=== PATIENT | female | born 1985 | race Caucasian/White ===

== ENCOUNTER 2021-08-23 00:39 | Emergency (ER) | payer SELFPAY ==
[~2021-08-23] VITALS: Ht 165.1 cm; Wt 80.0 kg
[2021-08-23] MEDS ORDERED: IV NORMAL SALINE 1000ML BAG 1,000 ML IV SCH (01:45)
[2021-08-23 02:04] LABS: BASO # 0.1 x10^3/uL (0.0-0.2); BASO % 1 % (0-3); EOS # 0.2 x10^3/uL (0.0-0.7); EOS % 2 % (0-3); HEMATOCRIT 38.6 % (36.0-47.0); HEMOGLOBIN 13.5 g/dL (12.0-15.5); LYMPH # 2.7 x10^3/uL (1.0-4.8); LYMPH % 29 % (24-48); MEAN CORPUSCULAR HEMOGLOBIN 33 pg (25-35); MEAN CORPUSCULAR HGB CONC 35 g/dL (31-37); MEAN CORPUSCULAR VOLUME 93 fL (79-100); MONO # 0.8 x10^3/uL (0.0-1.1); MONO % 9 % (0-9); NEUT # 5.6 x10^3/uL (1.8-7.7); NEUT % 60 % (31-73); PLATELET COUNT 226 x10^3/uL (140-400); RED BLOOD COUNT 4.14 x10^6/uL (3.50-5.40); RED CELL DISTRIBUTION WIDTH 12.9 % (11.5-14.5); WHITE BLOOD COUNT 9.4 x10^3/uL (4.0-11.0)
--- NOTE | 2021-08-23 02:10 | PHYS DOC ---
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 Last bowel movement was 4 days ago. States she has not seen her surgeon regarding her symptoms. States she has bowel movements through her rectum and her vagina for > 10 years. States the fistula reopened a few months after surgery-she was warned by her surgeons that a failed repair was possible. States "it didn't heal right." No relief with an entire tube with Preparation H. States "I don't think I have a UTI, it doesn't burn." Review of Systems: Review of Systems: Constitutional: Denies fever or chills. [] Eyes: Denies change in visual acuity. [] HENT: Denies nasal congestion or sore throat. [] Respiratory: Denies cough or shortness of breath. [] Cardiovascular: Denies chest pain or edema. [] GI: Denies abdominal pain, nausea, vomiting, diarrhea, melena or hematochezia : Denies dysuria or vaginal bleeding Musculoskeletal: Denies back pain or joint pain. [] Integument: Denies rash or diaphoresis Neurologic: Denies headache, focal weakness or sensory changes. [] Endocrine: Denies polyuria or polydipsia. [] Lymphatic: Denies swollen glands. [] Psychiatric: Denies depression or anxiety. [] Heart Score: C/O Chest Pain: No Risk Factors: Risk Factors: DM, Current or recent (<one month) smoker, HTN, HLP, family history of CAD, obesity. Risk Scores: Score 0 - 3: 2.5% MACE over next 6 weeks - Discharge Home Score 4 - 6: 20.3% MACE over next 6 weeks - Admit for Clinical Observation Score 7 - 10: 72.7% MACE over next 6 weeks - Early Invasive Strategies Current Medications: Current Medications Medications (Trade) Dose Ordered Sig/Ashish Start Time Stop Time Status Last Admin Dose Admin Sodium Chloride 1,000 ml @ 1,000 mls/hr Q1H 08/23/21 01:45 08/23/21 02:44 UNV Physical Exam: PE: Constitutional: Well developed, well nourished, no acute distress, non-toxic appearance. HENT: Normocephalic, atraumatic, Eyes: EOMI, conjunctiva normal, no discharge. Neck: Normal range of motion, supple, Cardiovascular: S1/2 present, regular rhythm Lungs & Thorax: Speaking in full sentences, bilateral equal chest rise, no tachypnea or increased work of breathing Abdomen: soft, no tenderness, Skin: Warm, dry, no erythema, no rash. [] Back: No tenderness, no CVA tenderness. [] Extremities: No tenderness, no cyanosis, Neurologic: Alert and oriented X 3, normal motor function, normal sensory function, no focal deficits noted. [] Psychologic: Affect normal, judgement normal, mood normal. [] : Chaperoned by RN, 1 cm, nonthrombosed external hemorrhoid at 6 o'clock position, cannot appreciate any anal fissures or tears, perineum intact with no external visible connection between rectum and vagina, no evidence of external melena or hematemesis, no rash Current Patient Data: Labs: Laboratory Tests Test 08/23/21 01:55 White Blood Count 9.4 x10^3/uL (4.0-11.0) Red Blood Count 4.14 x10^6/uL (3.50-5.40) Hemoglobin 13.5 g/dL (12.0-15.5) Hematocrit 38.6 % (36.0-47.0) Mean Corpuscular Volume 93 fL (79-100) Mean Corpuscular Hemoglobin 33 pg (25-35) Mean Corpuscular Hemoglobin Concent 35 g/dL (31-37) Red Cell Distribution Width 12.9 % (11.5-14.5) Platelet Count 226 x10^3/uL (140-400) Neutrophils (%) (Auto) 60 % (31-73) Lymphocytes (%) (Auto) 29 % (24-48) Monocytes (%) (Auto) 9 % (0-9) Eosinophils (%) (Auto) 2 % (0-3) Basophils (%) (Auto) 1 % (0-3) Neutrophils # (Auto) 5.6 x10^3/uL (1.8-7.7) Lymphocytes # (Auto) 2.7 x10^3/uL (1.0-4.8) Monocytes # (Auto) 0.8 x10^3/uL (0.0-1.1) Eosinophils # (Auto) 0.2 x10^3/uL (0.0-0.7) Basophils # (Auto) 0.1 x10^3/uL (0.0-0.2) Laboratory Tests 08/23/21 01:55 EKG: EKG: [] Radiology/Procedures: Radiology/Procedures: IMAGING REPORT Signed PATIENT: GIL TREVINO ACCOUNT: [id number] : 1985 LOCATION: ER AGE: 35 SEX: F EXAM STATUS: REG ER ORD. PHYSICIAN: AMNA DODD DO REASON: feces in vagina, h/o colorectal vesicula;OMNI 240,30ML;OMNI 30,75ML PROCEDURE: CT ABD PELV W/ORAL&IV CONTRAST EXAMINATION: CT ABDOMEN+PELVIS W CLINICAL HISTORY: Feces in vagina, h/o colorectal vesicula TECHNIQUE: CT of the abdomen and pelvis was performed using standard technique, scanning from just above the dome of the diaphragm to the symphysis pubis following administration of intravenous contrast. CT Dose Reduction Employed: One or more of the following individualized dose reduction techniques were utilized for this examination: 1. Automated exposure control 2. Adjustment of the mA and/or kV according to patient size 3. Use of iterative reconstruction technique. COMPARISON: None FINDINGS: Minimal dependent bibasilar subsegmental atelectasis. Liver, gallbladder, pancreas, spleen, adrenal glands, and kidneys unremarkable. Mildly filled urinary bladder. Questionable 1.7 cm subserosal fibroid along the dorsal uterine body/fundus. Involuting left ovarian cyst/corpus luteum. Mild air in the vagina with no definitively visualize rectovaginal fistula. No bowel dilation or definite wall thickening. Appendix within normal limits. No abdominal aortic or iliac artery aneurysm. No evidence of acute osseous abnormality. IMPRESSION: No evidence of acute abdominopelvic abnormality. No definitively visualized rectovaginal fistula on limited evaluation. Nonemergent pelvic MRI with intravenous contrast could be obtained for further evaluation as indicated. Electronically signed by: Umer Becerril DO (08/23/2021 3:57 AM) [facility] DICTATED and SIGNED BY: UMER BECERRIL DO DATE: 08/23/21 [id number] 0 Course & Med Decision Making: Course & Med Decision Making Pertinent Labs and Imaging studies reviewed. (See chart for details) Concern for dyschezia in the setting of chronic rectovaginal fistula which was not visualized on CT imaging. Recommended nonemergent outpatient MRI with IV contrast. No evidence of external rectovaginal fistula. Patient's urinalysis concerning for urinary tract infection and incidental finding of trichomonas. Patient denies any abnormal vaginal discharge, itching or odor. Will treat with Flagyl and Keflex for UTI. Will prescribe Anusol cream for dyschezia and referred to colorectal surgery for definitive management. On reevaluation patient sleeping and resting comfortably. Will discharge home with strict ED return precautions were given for GI bleeding, severe pain, fever or flulike symptoms. Encouraged urgent outpatient follow-up with PMD and colorectal surgery. Life-threatening processes were considered but are low suspicion at this time, given history, physical exam and ED workup. Pt was educated on all p rescription medications and adverse effects. All patient's questions were answered and pt was stable at time of discharge. Life/limb-threatening differential includes but is not limited to, aortic d issection, aortic aneurysm, acute coronary syndrome, surgical abdomen (appendicitis, cholecystitis, ischemic bowel, strangulated hernia, etc), bowel obstruction or volvulus, bladder outlet obstruction, gastrointestinal bleeding, inflammatory bowel disease, peptic ulcer disease, ACS/CAD, sepsis, diverticular disease, ureterolithiasis, nephrolithiasis, ovarian or testicular torsion, ectopic , vaginal hemorrhage, or genitourinary infection. I have spoken with the patient and/or caregivers. I explained the patient's condition, diagnoses and treatment plan based on the information available to me at this time. I have answered the patient and/or caregiver's questions and addressed any concerns. The patient and/or caregivers have a good understanding of patient's diagnosis, condition and treatment plan as can be expected at this point. Vital signs have been stable. Patient's condition is stable and appropriate for discharge from the emergency department. Patient will pursue further outpatient evaluation with primary care physician or other designated or consulting physician as outlined in the discharge instructions. The patient and/or caregivers are agreeable to this plan of care and follow-up instructions have been explained in detail. The patient and/or caregivers have received these instructions in written form and have expressed an understanding of the discharge instructions. The patient and/or caregivers are aware that any significant change of condition or worsening of symptoms should prompt immediate return to this or the closest emergency department or call to [phone]. Marlena Disclaimer: Marlena Disclaimer: This electronic medical record was generated, in whole or in part, using a voice recognition dictation system. Departure Departure Impression: Primary Impression: Dyschezia Additional Impressions: UTI (urinary tract infection) Trichomonal infection Disposition: HOME / SELF CARE / HOMELESS Condition: STABLE Referrals: NO PCP (PCP) Follow-up with your primary care physician in 24 to 48 hours OR FOLLOW UP WITH FAMILY MEDICINE: [address], [address] [place] [address] Patient Instructions: Trichomoniasis, Urinary Tract Infection Additional Instructions: FOLLOW UP WITH SURGERY: FOR DEFINITIVE MANAGEMENT of rectovaginal fistula [facility] colorectal surgery Phone: CALL FOR APPOINTMENT [phone] EMERGENCY DEPARTMENT GENERAL DISCHARGE INSTRUCTIONS Thank you for coming to [facility] Emergency Department (ED) today and trusting us with you care. We trust that you had a positive experience in our Emergency Department. If you wish to speak to the department management, you may call the Director at [phone]. YOUR FOLLOW UP INSTRUCTIONS ARE FOLLOWS: 1. Do you have a private Doctor? If you do not have a private doctor, please ask for a resource list of physicians or clinics that may be able to assist you with follow up care. 2. The Emergency Physicain has interpreted your x-rays. The X-Ray specialist will also review them. If there is a change in the findings, you will be notified in 48 hours when at all possible. 3. A lab test or culture has been done, your results will be reviewed and you will be notified if you need a change in treatment. ADDITIONAL INSTRUCTIONS AND INFORMATION: 1. Your care today has been supervised by a physician who is specially trained in emergency care. Many problems require more than one evaluation for a complete diagnosis and treatment. We recommend that you schedule your follow up appointment as recommended to ensure complete treatment of you illness or injury. If you are unable to obtain follow up care and continue to have a problem, or if your condition worsens, we recommend that you return to the ED. 2. We are not able to safely determine your condition over the phone nor are we able to give sound medical advice over the phone. For these safety reasons, if you call for medical advice we will ask you to come to the ED for further evaluation. 3. If you have any questions regarding these discharge instructions please call the ED at [phone]. SAFETY INFORMATION: In the interest of safety, wellness, and injury prevention; we encourage you to wear your sealbelt, if you smoke; quite smoking, and we encourage family to use a protective helmet for bicycling and other sporting events that present an increased risk for head injury. IF YOUR SYMPTOMS WORSEN OR NEW SYMPTOMS DEVELOP, OR YOU HAVE CONCERNS ABOUT YOUR CONDITION; OR IF YOUR CONDITION WORSENS WHILE YOU ARE WAITING FOR YOUR FOLLOW UP APPOINTMENT; EITHER CONTACT YOUR PRIMARY CARE DOCTOR, THE PHYSICIAN WHOSE NAME AND NUMBER YOU WERE GIVEN, OR RETURN TO THE ED IMMEDIATELY. Scripts Cephalexin (KEFLEX) 500 Mg Capsule 1 CAP PO BID for 7 Days, #14 CAP Prov: AMNA DODD DO 08/23/21 Metronidazole (METRONIDAZOLE) 500 Mg Tablet 1 TAB PO BID for 7 Days, #14 TAB 0 Refills Prov: AMNA DODD DO 08/23/21 Hydrocortisone (ANUSOL-HC) 30 Gm Cream..g. 1 MAL TP BID for 7 Days, #30 GM 1 Refill Prov: AMNA DODD DO 08/23/21 AMNA DODD DO Aug 23, 2021 02:10
[2021-08-23 02:15] LABS: CALCIUM 8.5 mg/dL (8.5-10.1); CREATININE 0.8 mg/dL (0.6-1.0); GFR 81.6; POTASSIUM 3.9 mmol/L (3.5-5.1)
[2021-08-23 02:16] LABS: BILIRUBIN,URINE NEGATIVE (NEG); CLARITY,URINE CLEAR; COLOR,URINE YELLOW; NITRITE,URINE NEGATIVE (NEG); PROTEIN,URINE NEGATIVE (NEG-TRACE)
[2021-08-23 02:21] LABS: PREG TEST PT QUAL NEGATIVE (NEG)
[2021-08-23 02:26] LABS: ALBUMIN 3.6 g/dL (3.4-5.0); TOTAL BILIRUBIN 0.3 mg/dL (0.2-1.0); TOTAL PROTEIN 7.2 g/dL (6.4-8.2)
[2021-08-23 02:28] LABS: BACTERIA,URINE MODERATE /HPF (0-FEW); WBC,URINE TNTC /HPF (0-4)
[2021-08-23 02:29] LABS: TRICHOMONAS,URINE PRESENT
[2021-08-23] MEDS ORDERED: KETOROLAC 15 MG/ML VIAL. IM ONE (03:15)
[2021-08-23] MEDS ORDERED: KETOROLAC 30 MG/ML VIAL. ONE (03:18)
[2021-08-23] MEDS ORDERED: IOHEXOL 240 MG/ML 50ML VIAL. PO ONE (03:30)
[2021-08-23] MEDS ORDERED: CONTRAST GIVEN. MC PRN (03:30)
[2021-08-23] MEDS ORDERED: IOHEXOL 300 MG/ML 100ML VIAL. IV ONE (03:30)
--- NOTE | 2021-08-23 04:00 | RAD ---
EXAMINATION: CT ABDOMEN+PELVIS W CLINICAL HISTORY: Feces in vagina, h/o colorectal vesicula TECHNIQUE: CT of the abdomen and pelvis was performed using standard technique, scanning from just ab ove the dome of the diaphragm to the symphysis pubis following administration of intravenous contrast . CT Dose Reduction Employed: One or more of the following individualized dose reduction techniques wer e utilized for this examination: 1. Automated exposure control 2. Adjustment of the mA and/or kV ac cording to patient size 3. Use of iterative reconstruction technique. COMPARISON: None FINDINGS: Minimal dependent bibasilar subsegmental atelectasis. Liver, gallbladder, pancreas, spleen, adrenal glands, and kidneys unremarkable. Mildly filled urinary bladder. Questionable 1.7 cm subserosal fibroid along the dorsal uterine body/f undus. Involuting left ovarian cyst/corpus luteum. Mild air in the vagina with no definitively visual ize rectovaginal fistula. No bowel dilation or definite wall thickening. Appendix within normal limits. No abdominal aortic or iliac artery aneurysm. No evidence of acute osseous abnormality. IMPRESSION: No evidence of acute abdominopelvic abnormality. No definitively visualized rectovaginal fistula on limited evaluation. Nonemergent pelvic MRI with in travenous contrast could be obtained for further evaluation as indicated. Electronically signed by: Umer Becerril DO (08/23/2021 3:57 AM) [facility]
[2021-08-23] MEDS ORDERED: CEPH500C PO (04:51)
[2021-08-23] MEDS ORDERED: HYDR30CR61 TP (04:51)
[2021-08-23] MEDS ORDERED: METR-34 PO (04:51)
[2021-08-23 05:30] VITALS: BP 99/52
== END 2021-08-23 06:07 | disposition home or self-care (01) ==
LOC: ER 00:39
DX: N39.0 Urinary tract infection, site not specified (principal); K59.00 Constipation, unspecified; A59.01 Trichomonal vulvovaginitis
CPT/HCPCS: 36415; 74177; 80053; 81001; 82550; 83690; 84703; 85025; 87086; 96360; 96372; 99285; J1885; J7030; Q9966; Q9967